=== PATIENT | female | born 1975 | race African-American/Black ===

== ENCOUNTER 2016-06-04 14:40 | Emergency (ER) | payer MEDICARE, MEDICAID ==
[2016-06-04] MEDS ORDERED: DEXAMETHASONE SOD PHOS INJ 10 MG/1 ML VIAL IM ONE (18:16)
[2016-06-04] MEDS ORDERED: METHYLPREDNISOLONE ACETATE INJ 40 MG/1 ML ML IM ONE (18:16)
--- NOTE | 2016-06-04 18:21 | ER Document Report ---
ED ENT - General Chief Complaint: Ear Pain Stated Complaint: LEFT EAR PAIN Information source: Patient TRAVEL OUTSIDE OF THE [place] IN LAST 30 DAYS: No - HPI Patient complains to provider of: Ear problem Onset: Other - Patient states she has bilateral ear fullness she had tubes placed a month ago also hears an echo. The echo has been ongoing for approximately 8 months. - Related Data Allergies/Adverse Reactions: No Known Allergies Allergy (Verified 06/04/16 15:05) Past Medical History - General Information source: Patient - Social History Smoking Status: Former Smoker Chew tobacco use (# tins/day): No Frequency of alcohol use: None Drug Abuse: None Family History: CVA, DM, Hypertension, Malignancy Patient has suicidal ideation: No Patient has homicidal ideation: No Pulmonary Medical History: Reports: Hx Asthma GI Medical History: Reports: Hx Gastroesophageal Reflux Disease, Hx Hiatal Hernia Psychiatric Medical History: Reports: Hx Bipolar Disorder, Hx Depression, Hx Schizophrenia Past Surgical History: Reports: Hx Section, Hx Herniorrhaphy, Hx Umbilical Hernia - Immunizations Immunizations up to date: No Hx Diphtheria, Pertussis, Tetanus Vaccination: Yes Review of Systems - Review of Systems Constitutional: No symptoms reported EENT: Ear pain Cardiovascular: No symptoms reported Respiratory: No symptoms reported Gastrointestinal: No symptoms reported Genitourinary: No symptoms reported Female Genitourinary: No symptoms reported Musculoskeletal: No symptoms reported Skin: No symptoms reported Hematologic/Lymphatic: No symptoms reported Neurological/Psychological: No symptoms reported Physical Exam - Vital signs Vitals: Temp Pulse Resp BP Pulse Ox 98.0 F 86 20 143/88 H 98 06/04/16 15:04 06/04/16 15:04 06/04/16 15:04 06/04/16 15:04 06/04/16 15:04 Interpretation: Normal - General General appearance: Appears well, Alert - HEENT Head: Normocephalic, Atraumatic Eyes: Normal Pupils: PERRL External canal: Normal Tympanic membrane: Normal Hearing loss: No: Left, Right Sinus: Normal - Respiratory Respiratory status: No respiratory distress Chest status: Nontender Breath sounds: Normal Chest palpation: Normal - Cardiovascular Rhythm: Regular Heart sounds: Normal auscultation Murmur: No - Abdominal Inspection: Normal Distension: No distension Bowel sounds: Normal Tenderness: Nontender Organomegaly: No organomegaly - Back Back: Normal, Nontender - Extremities General upper extremity: Normal inspection, Nontender, Normal color, Normal ROM , Normal temperature General lower extremity: Normal inspection, Nontender, Normal color, Normal ROM , Normal temperature, Normal weight bearing. No: Araseli's sign - Neurological Neuro grossly intact: Yes Cognition: Normal Orientation: AAOx4 [place] Coma Scale Eye Opening: Spontaneous Scott Coma Scale Verbal: Oriented Scott Coma Scale Motor: Obeys Commands Scott Coma Scale Total: 15 Speech: Normal Motor strength normal: LUE, RUE, LLE, RLE Sensory: Normal - Psychological Associated symptoms: Normal affect, Normal mood - Skin Skin Temperature: Warm Skin Moisture: Dry Skin Color: Normal Course - Vital Signs Vital signs: Temp Pulse Resp BP Pulse Ox 98.0 F 86 20 143/88 H 98 06/04/16 15:04 06/04/16 15:04 06/04/16 15:04 06/04/16 15:04 06/04/16 15:04 Discharge - Discharge Clinical Impression: Vestibular nerve disease Disposition: HOME, SELF-CARE Additional Instructions: Follow-up with private doctor in 1 to 2 days for final radiology readings please return to the emergency room for any change worsening condition. Follow up with private M.D. for all other routine health care needs. Forms: Elevated Blood Pressure
[2016-06-04 19:19] VITALS: BP 140/92
== END 2016-06-04 19:19 | disposition home or self-care (01) ==
LOC: ER 14:40
DX: H81.90 Unspecified disorder of vestibular function, unspecified ear (principal); H92.02 Otalgia, left ear; Z87.891 Personal history of nicotine dependence
CPT/HCPCS: 99282; 96372; J1020; J1100

== ENCOUNTER 2017-01-20 05:53 | Emergency (ER) | payer MEDICARE, MEDICAID ==
[2017-01-20] MEDS ORDERED: ONDANSETRON 4 MG TAB.RAPDIS PO ONE (07:19)
--- NOTE | 2017-01-20 07:19 | ER Document Report ---
ED Dizziness/Weakness - General Chief Complaint: General Weakness Stated Complaint: DIZZINESS Time Seen by Provider: 01/20/17 07:08 Mode of Arrival: Ambulatory Information source: Patient Notes: Patient is a 41-year-old female currently going to gender reassignment who presents to the ER today for generalized fatigue, weakness, nausea. Patient sees Dr. Rendon at [facility] in [place] who gives her testosterone and manages her gender reassignment at this time, also sees Dr. Bell, charge preparation technician who manages her chronic, iron deficiency anemia. Patient has been seen her charge preparation technician recently and states that her hemoglobin has been normal but that the doctor does not want her hemoglobin to rise anymore. Patient states that her iron is still low but her charge preparation technician told her that she did not want her to be on iron supplements because she is afraid it will raise her hemoglobin higher. Patient is not currently on iron supplements. She also usually takes vitamin D, 50,000 units per week, but she has been out of that for some time now. TRAVEL OUTSIDE OF THE [place] IN LAST 30 DAYS: No - Related Data Allergies/Adverse Reactions: No Known Allergies Allergy (Verified 06/04/16 15:05) Past Medical History - General Information source: Patient - Social History Smoking Status: Current Every Day Smoker Family History: CVA, DM, Hypertension, Malignancy Patient has suicidal ideation: No Patient has homicidal ideation: No Pulmonary Medical History: Reports: Hx Asthma Renal/ Medical History: Denies: Hx Peritoneal Dialysis GI Medical History: Reports: Hx Gastroesophageal Reflux Disease, Hx Hiatal Hernia Psychiatric Medical History: Reports: Hx Bipolar Disorder, Hx Depression, Hx Schizophrenia Past Surgical History: Reports: Hx Section, Hx Herniorrhaphy, Hx Umbilical Hernia - Immunizations Immunizations up to date: No Hx Diphtheria, Pertussis, Tetanus Vaccination: Yes Review of Systems - Review of Systems Constitutional: See HPI EENT: No symptoms reported Cardiovascular: No symptoms reported Respiratory: No symptoms reported Gastrointestinal: See HPI Genitourinary: No symptoms reported Female Genitourinary: No symptoms reported Musculoskeletal: No symptoms reported Skin: No symptoms reported Hematologic/Lymphatic: No symptoms reported Neurological/Psychological: No symptoms reported Physical Exam - Vital signs Vitals: Temp Pulse Resp BP Pulse Ox 97.8 F 100 18 137/93 H 99 01/20/17 05:56 01/20/17 05:56 01/20/17 05:56 01/20/17 05:56 01/20/17 05:56 - Notes Notes: PHYSICAL EXAMINATION: GENERAL: Well-appearing and in no acute distress. HEAD: Atraumatic, normocephalic. EYES: Pupils equal round and reactive to light, extraocular movements intact, sclera anicteric, conjunctiva are normal. ENT: ear canals without erythema or foreign body, TMs pearly plascencia with good bony landmarks, nares patent, oropharynx clear without exudates. Moist mucous membranes. NECK: Normal range of motion, supple without lymphadenopathy LUNGS: CTAB and equal. No wheezes rales or rhonchi. HEART: Regular rate and rhythm without murmurs ABDOMEN: Soft, no tenderness. No guarding, no rebound BACK: no vertebral tenderness, normal ROM GI/: no CVA tenderness EXTREMITIES: Normal range of motion, no pitting edema. No cyanosis. NEUROLOGICAL: Cranial nerves grossly intact. Normal sensory/motor exams. PSYCH: Normal mood, normal affect. SKIN: Warm, Dry, normal turgor, no rashes or lesions noted Course - Re-evaluation Re-evalutation: 01/20/17 10:24 Dr. Bell was consulted with an advises that she needs to follow-up with the person handling her gender reassignment as this is a complicated case with testosterone injections, iron deficiency anemia decreasing iron but increasing hemoglobin. Dr. Rendon, from [facility] was attempted to be called but the office was closed as everyone was in a staff meeting for the next 2 hours. I did advise patient to follow-up with Dr. Rendon and I did print her lab work for her today to take with her. I will refill her vitamin D and give her Zofran for the nausea. - Vital Signs Vital signs: Temp Pulse Resp BP Pulse Ox 97.8 F 100 17 112/88 H 99 01/20/17 05:56 01/20/17 05:56 01/20/17 09:46 01/20/17 09:46 01/20/17 09:46 - Laboratory Result Diagrams: 01/20/17 07:01 01/20/17 07:01 Laboratory results interpreted by me: 01/20/17 01/20/17 07:01 08:20 Glucose 116 H Creatine Kinase 181 H Lipase 11.6 L Urine Glucose (UA) 150 H Discharge - Discharge Clinical Impression: Fatigue due to treatment Condition: Stable Disposition: HOME, SELF-CARE Additional Instructions: Return immediately for any new or worsening symptoms. Follow up with Dr. Rendon, call tomorrow to make followup appointment. Prescriptions: Cholecalciferol (Vitamin D3) [Vitamin D] 50,000 unit PO ASDIR PRN #4 capsule PRN Reason: Ondansetron [Zofran Odt 4 mg Tablet] 1 - 2 tab PO Q4H PRN #15 tab.rapdis PRN Reason: For Nausea/Vomiting Forms: Return to Work
[2017-01-20 07:26] LABS: ABSOLUTE BASOPHILS # (AUTO) 0.1 10^3/uL (0.0-0.2); ABSOLUTE LYMPHOCYTES (AUTO) 2.1 10^3/uL (0.5-4.7); ABSOLUTE MONOCYTES (AUTO) 0.5 10^3/uL (0.1-1.4); ABSOLUTE NEUT (AUTO) 4.2 10^3/uL (1.7-8.2); BASOPHILS % (AUTO) 0.8 % (0-2); EOSINOPHILS % (AUTO) 0.5 % (0-6); HEMATOCRIT 43.3 % (36.0-47.0); HEMOGLOBIN 14.6 g/dL (12.0-15.5); HGB HCT DIFFERENCE 0.5; LYMPHOCYTES % (AUTO) 30.7 % (13-45); MEAN CORPUSCULAR HGB CONC 33.6 g/dL (32.0-36.0); MEAN CORPUSCULAR VOLUME 92 fl (80-97); MONOCYTES % (AUTO) 7.5 % (3-13); RED BLOOD COUNT 4.69 10^6/uL (3.72-5.28); RED CELL DISTRIBUTION WIDTH 13.9 % (11.5-14.0); SEGMENTED NEUTROPHILS % (AUTO) 60.5 % (42-78); WHITE BLOOD COUNT 6.9 10^3/uL (4.0-10.5)
[2017-01-20 07:29] LABS: ALANINE AMINOTRANSFERASE 32 U/L (9-52); ALBUMIN 3.9 g/dL (3.5-5.0); ALKALINE PHOSPHATASE 56 U/L (38-126); ANION GAP 9 (5-19); ASPARTATE AMINO TRANSFERASE 29 U/L (14-36); BILIRUBIN,DIRECT 0.4 mg/dL (0.0-0.4); BILIRUBIN,TOTAL 0.4 mg/dL (0.2-1.3); BLOOD UREA NITROGEN 9 mg/dL (7-20); CALCIUM 9.4 mg/dL (8.4-10.2); CARBON DIOXIDE 27 mmol/L (22-30); CHLORIDE 104 mmol/L (98-107); CREATINE KINASE 181 U/L (30-135); CREATININE RESULT 0.82 mg/dL (0.52-1.25); GLUCOSE 116 mg/dL (75-110); LIPASE 11.6 U/L (23-300); SODIUM 139.7 mmol/L (137-145)
[2017-01-20 07:47] LABS: TROPONIN I < 0.012 ng/mL
[2017-01-20 09:01] LABS: AMORPHOUS SEDIMENT,URINE TRACE /HPF; APPEARANCE,URINE CLOUDY; BILIRUBIN,URINE NEGATIVE (NEGATIVE); GLUCOSE, URINE 150 mg/dL (NEGATIVE); KETONES,URINE NEGATIVE (NEGATIVE); LEUKOCYTE ESTERASE,URINE NEGATIVE (NEGATIVE); NITRITE,URINE NEGATIVE (NEGATIVE); PROTEIN,URINE NEGATIVE (NEGATIVE); URINE SPECIFIC GRAVITY 1.024; UROBILINOGEN,URINE NEGATIVE mg/dL (<2.0)
--- NOTE | 2017-01-20 09:26 | EKG REPORT ---
SEVERITY:- NORMAL ECG - SINUS RHYTHM : Confirmed by: Ulices De Santiago 20-Jan-2017 09:24:51
[2017-01-20 10:03] VITALS: BP 112/88
== END 2017-01-20 09:58 | disposition home or self-care (01) ==
LOC: ER 05:53
DX: R53.83 Other fatigue (principal); T38.7X5A Adverse effect of androgens and anabolic congeners, initial encounter; R53.1 Weakness; R11.0 Nausea; D50.9 Iron deficiency anemia, unspecified; F17.200 Nicotine dependence, unspecified, uncomplicated; J45.909 Unspecified asthma, uncomplicated
CPT/HCPCS: 93005; 99285; 36415; 82553; 82550; 82728; 83690; 84703; 85025; 80053; 81001; 84484; 93010; A9270; S0119